=== PATIENT | female | born 1990 | race African-American/Black ===

== ENCOUNTER 2021-10-31 23:29 | Emergency (ER) | payer BC ==
[~2021-10-31] VITALS: Ht 160 cm; Wt 77.7 kg
[2021-10-31] MEDS ORDERED: IBUP200C5 PO (23:31)
[2021-10-31] MEDS ORDERED: birth control PO (23:31)
[2021-11-01] MEDS ORDERED: SODIUM CHLORIDE 0.9% 1,000 ML IV ONE (00:45)
[2021-11-01 01:02] LABS: BASOPHILS % (AUTO) 0.9 % (0.0-2.0); EOSINOPHILS % (AUTO) 5.4 % (1.0-6.0); HEMATOCRIT 37.4 % (36-46); HEMOGLOBIN 12.9 g/dL (12.0-16.0); LYMPHOCYTES # (AUTO) 2.2 K/uL (1.0-4.8); LYMPHOCYTES % (AUTO) 41.3 % (22.0-44.0); MEAN CORPUSCULAR HEMOGLOBIN 29.8 pg (26.0-34.0); MEAN CORPUSCULAR HGB CONC 34.6 G/dL (31.0-37.0); MEAN CORPUSCULAR VOLUME 86 fL (80-100); MONOCYTES # (AUTO) 0.7 K/uL (0.1-1.0); MONOCYTES % (AUTO) 13.3 % (2.0-9.0); NEUTROPHILS # (AUTO) 2.1 K/uL (1.8-7.7); NEUTROPHILS % (AUTO) 39.1 % (40.0-70.0); PLATELET COUNT (AUTO) 215 K/uL (150-450); RED BLOOD CELL COUNT(AUTO) 4.33 MIL/uL (4.00-5.20); RED CELL DISTRIBUTION WIDTH 13.2 % (11.5-14.5)
[2021-11-01 01:11] LABS: ANION GAP 10 mmol/L (8-16); CALCIUM, TOTAL 8.8 mg/dL (8.8-10.5); CARBON DIOXIDE 27 mmol/L (22-29); CHLORIDE 101 mmol/L (98-107); CREATININE 0.83 mg/dL (0.60-1.30); GLUCOSE,RANDOM 120 mg/dL (70-110); SODIUM SERUM 138 mmol/L (136-145); UREA NITROGEN, BLOOD 7 mg/dL (7-18)
[2021-11-01 01:12] LABS: GLOMERULAR FILTR. RATE CALC > 60 mL/min (>60)
[2021-11-01 01:14] LABS: APPEARANCE,URINE CLEAR (CLEAR); BILIRUBIN,URINE NEGATIVE (NEGATIVE); GLUCOSE, URINE (UA) NEGATIVE (NEGATIVE); KETONES,URINE NEGATIVE (NEGATIVE); LEUKOCYTE ESTERASE ,URINE NEGATIVE (NEGATIVE); NITRATE,URINE NEGATIVE (NEGATIVE); OCCULT BLOOD,URINE NEGATIVE (NEGATIVE); PH,URINE 6.5 (5.0-8.0); PROTEIN,URINE NEGATIVE (NEGATIVE); SPECIFIC GRAVITIY, URINE 1.005 (1.003-1.030); UROBILINOGEN,URINE <=1.0 mg/dL (<=1.0)
[2021-11-01 01:17] LABS: ALANINE AMINOTRANSFERASE 15 U/L (12-78); ALBUMIN 3.9 g/dL (3.4-5.0); ALKALINE PHOSPHATASE 49 U/L (46-116); ASPARTATE AMINOTRANSFERASE 16 U/L (15-37); BILIRUBIN,TOTAL 0.4 mg/dL (0.1-1.0); LIPASE 262 U/L (73-393); TOTAL PROTEIN, SERUM 7.5 g/dL (6.4-8.2)
[2021-11-01] MEDS ORDERED: PB/HYOSCY/ATR/SCOP/LIDO/MAALOX 55 ML BOTTLE PO ONE (01:30)
[2021-11-01] MEDS ORDERED: OMEP20 PO (02:23)
[2021-11-01 02:42] VITALS: BP 143/82
== END 2021-11-01 02:43 | disposition home or self-care (01) ==
LOC: EMS 23:30
DX: K29.70 Gastritis, unspecified, without bleeding (principal); F10.20 Alcohol dependence, uncomplicated; F17.210 Nicotine dependence, cigarettes, uncomplicated; K21.9 Gastro-esophageal reflux disease without esophagitis
CPT/HCPCS: 99284; 80053; 81003; 83690; 84703; 85025; 36415; 96360; 93005; J7030